=== PATIENT | female | born 1985 | race African-American/Black ===

== ENCOUNTER 2022-07-26 12:21 | Emergency (ER) | payer OTHER ==
[~2022-07-26] VITALS: Ht 157.5 cm; Wt 76.2 kg
[~2022-07-26 12:21] MED LIST: ACETAMINOP325 MG/10 PO; COLACE100 MG/10 PO; LORAZEPAM0.5 MG PO; ZITHROMAX500 MG PO
[2022-07-26] MEDS ORDERED: HYDROCODONE/APAP 5MG-325MG TAB PO ONE (13:00)
[2022-07-26 15:27] LABS: CLARITY,URINE CLOUDY (CLEAR); COLOR,URINE YELLOW (YELLOW); LEUKOCYTE ESTERASE ,URINE NEGATIVE (NEGATIVE); NITRITE,URINE NEGATIVE (NEGATIVE)
[2022-07-26 15:28] LABS: KETONES,URINE NEGATIVE (NEGATIVE); PROTEIN,URINE DIPSTICK NEGATIVE (NEGATIVE); URINE UROBILINOGEN 0.2 mg/dL (0.2 - 1)
[2022-07-26 15:31] LABS: BACTERIA,URINE FEW /HPF; EPITHELIAL CELLS,URINE FEW /LPF; MUCUS,URINE MANY (RARE)
[2022-07-26] MEDS ORDERED: ANAPROX DS550 MG PO (15:59)
[2022-07-26] MEDS ORDERED: ACETAMINOPHEN-1 EAC4 PO ×2 (15:59→16:39)
[2022-07-26 16:05] VITALS: BP 112/65
== END 2022-07-26 16:07 | disposition home or self-care (01) ==
LOC: ER 12:25
DX: R10.2 Pelvic and perineal pain (principal); D25.9 Leiomyoma of uterus, unspecified; F41.9 Anxiety disorder, unspecified
CPT/HCPCS: 76830; 76856; 81001; 81025; 99284